=== PATIENT | male | born 1935 | race Caucasian/White ===

== ENCOUNTER 2018-02-14 08:55 | Outpatient (CLI) | payer OTHER | END 2018-02-14 09:03 | disposition home or self-care (01) | LOC: LAB 08:55 | DX: Z80.0 Family history of malignant neoplasm of digestive organs (principal); D51.8 Other vitamin B12 deficiency anemias; D51.3 Other dietary vitamin B12 deficiency anemia; D72.818 Other decreased white blood cell count; E55.9 Vitamin D deficiency, unspecified; J32.4 Chronic pansinusitis; I10 Essential (primary) hypertension; E03.8 Other specified hypothyroidism; D50.8 Other iron deficiency anemias; R97.0 Elevated carcinoembryonic antigen [CEA]; R97.8 Other abnormal tumor markers; N40.1 Benign prostatic hyperplasia with lower urinary tract symptoms; N39.0 Urinary tract infection, site not specified; D68.8 Other specified coagulation defects; N34.2 Other urethritis ==

== ENCOUNTER 2018-06-28 10:49 | Outpatient (CLI) | payer OTHER | END 2018-06-28 11:04 | disposition home or self-care (01) | LOC: RAD 10:49 | DX: E03.8 Other specified hypothyroidism (principal); J45.998 Other asthma; E07.89 Other specified disorders of thyroid ==

== ENCOUNTER 2018-12-21 10:19 | Outpatient (CLI) | payer OTHER | END 2018-12-21 10:28 | disposition home or self-care (01) | LOC: RAD 10:19 | DX: H25.011 Cortical age-related cataract, right eye (principal); Z98.41 Cataract extraction status, right eye ==

== ENCOUNTER 2019-08-12 10:59 | Outpatient (CLI) | payer OTHER | END 2019-08-12 12:39 | disposition home or self-care (01) | LOC: LAB 10:59 | DX: E11.69 Type 2 diabetes mellitus with other specified complication (principal); D64.89 Other specified anemias; E78.2 Mixed hyperlipidemia; E03.8 Other specified hypothyroidism; D50.8 Other iron deficiency anemias; I10 Essential (primary) hypertension; Z80.0 Family history of malignant neoplasm of digestive organs; D72.818 Other decreased white blood cell count; D51.8 Other vitamin B12 deficiency anemias; D51.3 Other dietary vitamin B12 deficiency anemia; E55.9 Vitamin D deficiency, unspecified; J32.4 Chronic pansinusitis; R97.0 Elevated carcinoembryonic antigen [CEA]; R97.20 Elevated prostate specific antigen [PSA]; R97.8 Other abnormal tumor markers ==

== ENCOUNTER 2020-02-20 07:11 | Outpatient (CLI) | payer OTHER | END 2020-02-20 07:23 | disposition home or self-care (01) | LOC: LAB 07:11 | PROVIDERS: ATTEND Internal Medicine Hematology & Oncology | DX: D50.8 Other iron deficiency anemias (principal); D51.8 Other vitamin B12 deficiency anemias; E55.9 Vitamin D deficiency, unspecified; I10 Essential (primary) hypertension; R97.0 Elevated carcinoembryonic antigen [CEA]; R97.8 Other abnormal tumor markers; R97.20 Elevated prostate specific antigen [PSA]; Z80.0 Family history of malignant neoplasm of digestive organs; D72.818 Other decreased white blood cell count; D51.3 Other dietary vitamin B12 deficiency anemia; J32.4 Chronic pansinusitis; E03.8 Other specified hypothyroidism ==

== ENCOUNTER → 2020-04-06 09:46 | Outpatient (CLI) | payer OTHER | END | disposition home or self-care (01) | LOC: LAB 09:46 | PROVIDERS: ATTEND Specialist | DX: D64.89 Other specified anemias (principal); N40.1 Benign prostatic hyperplasia with lower urinary tract symptoms; E11.65 Type 2 diabetes mellitus with hyperglycemia; D68.8 Other specified coagulation defects; E11.21 Type 2 diabetes mellitus with diabetic nephropathy ==

== ENCOUNTER 2020-07-21 09:24 | Outpatient (CLI) | payer OTHER | END 2020-07-21 09:30 | disposition home or self-care (01) | LOC: LAB 09:24 | PROVIDERS: ATTEND Specialist | DX: D50.8 Other iron deficiency anemias (principal); D51.8 Other vitamin B12 deficiency anemias; E55.9 Vitamin D deficiency, unspecified; R97.0 Elevated carcinoembryonic antigen [CEA]; R97.8 Other abnormal tumor markers; R97.20 Elevated prostate specific antigen [PSA]; I10 Essential (primary) hypertension; Z80.0 Family history of malignant neoplasm of digestive organs; D72.818 Other decreased white blood cell count; D51.3 Other dietary vitamin B12 deficiency anemia; J32.4 Chronic pansinusitis; E03.8 Other specified hypothyroidism ==

== ENCOUNTER 2020-07-22 11:09 | Outpatient (CLI) | payer OTHER | END 2020-07-22 11:16 | disposition home or self-care (01) | LOC: LAB 11:09 | PROVIDERS: ATTEND Specialist | DX: D68.8 Other specified coagulation defects (principal); K75.81 Nonalcoholic steatohepatitis (NASH); Z12.11 Encounter for screening for malignant neoplasm of colon; D51.0 Vitamin B12 deficiency anemia due to intrinsic factor deficiency; E78.2 Mixed hyperlipidemia; E03.8 Other specified hypothyroidism; E55.9 Vitamin D deficiency, unspecified; D64.89 Other specified anemias ==

== ENCOUNTER 2020-09-22 10:28 | Outpatient (CLI) | payer OTHER | END 2020-09-22 10:33 | disposition home or self-care (01) | LOC: RAD 10:28 | PROVIDERS: ATTEND Specialist | DX: J45.998 Other asthma (principal) ==

== ENCOUNTER 2020-10-21 08:40 | Outpatient (CLI) | payer OTHER | END 2020-10-21 15:01 | disposition home or self-care (01) | LOC: LAB 08:40 | PROVIDERS: ATTEND Specialist | DX: E78.2 Mixed hyperlipidemia (principal); E05.80 Other thyrotoxicosis without thyrotoxic crisis or storm ==

== ENCOUNTER 2021-01-19 09:40 | Outpatient (CLI) | payer OTHER | END 2021-01-19 09:45 | disposition home or self-care (01) | LOC: LAB 09:40 | PROVIDERS: ATTEND Specialist | DX: J32.4 Chronic pansinusitis (principal); D64.89 Other specified anemias; N39.0 Urinary tract infection, site not specified; E78.2 Mixed hyperlipidemia; D50.8 Other iron deficiency anemias; I10 Essential (primary) hypertension; R74.02 Elevation of levels of lactic acid dehydrogenase [LDH]; K76.89 Other specified diseases of liver; D51.8 Other vitamin B12 deficiency anemias; R97.0 Elevated carcinoembryonic antigen [CEA]; R97.8 Other abnormal tumor markers; R97.20 Elevated prostate specific antigen [PSA]; Z80.0 Family history of malignant neoplasm of digestive organs; D72.818 Other decreased white blood cell count; D51.3 Other dietary vitamin B12 deficiency anemia; E55.9 Vitamin D deficiency, unspecified ==

== ENCOUNTER 2021-04-26 10:04 | Outpatient (CLI) | payer OTHER | END 2021-04-26 10:05 | disposition home or self-care (01) | LOC: LAB 10:04 | PROVIDERS: ATTEND Specialist | DX: D64.89 Other specified anemias (principal); E03.8 Other specified hypothyroidism; E11.69 Type 2 diabetes mellitus with other specified complication ==

== ENCOUNTER 2021-07-02 10:42 | Outpatient (CLI) | payer OTHER | END 2021-07-02 10:44 | disposition home or self-care (01) | LOC: LAB 10:42 | PROVIDERS: ATTEND Specialist | DX: E03.8 Other specified hypothyroidism (principal); E11.21 Type 2 diabetes mellitus with diabetic nephropathy; N39.8 Other specified disorders of urinary system; D40.0 Neoplasm of uncertain behavior of prostate; E78.2 Mixed hyperlipidemia; E11.65 Type 2 diabetes mellitus with hyperglycemia; Z12.11 Encounter for screening for malignant neoplasm of colon; D64.89 Other specified anemias; D50.8 Other iron deficiency anemias; I10 Essential (primary) hypertension; R74.02 Elevation of levels of lactic acid dehydrogenase [LDH]; K76.89 Other specified diseases of liver; D51.8 Other vitamin B12 deficiency anemias; R97.0 Elevated carcinoembryonic antigen [CEA]; R97.8 Other abnormal tumor markers; R97.20 Elevated prostate specific antigen [PSA]; Z80.0 Family history of malignant neoplasm of digestive organs; D72.818 Other decreased white blood cell count; D51.3 Other dietary vitamin B12 deficiency anemia; E55.9 Vitamin D deficiency, unspecified; J32.4 Chronic pansinusitis; J45.998 Other asthma ==

== ENCOUNTER 2021-10-06 09:21 | Outpatient (CLI) | payer OTHER | END 2021-10-06 09:28 | disposition home or self-care (01) | LOC: LAB 09:21 | PROVIDERS: ATTEND Specialist | DX: E03.9 Hypothyroidism, unspecified (principal) ==

== ENCOUNTER 2022-01-27 09:02 | Outpatient (CLI) | payer OTHER | END 2022-01-27 09:08 | disposition home or self-care (01) | LOC: LAB 09:02 | PROVIDERS: ATTEND Specialist | DX: E03.9 Hypothyroidism, unspecified (principal); E78.2 Mixed hyperlipidemia; E11.65 Type 2 diabetes mellitus with hyperglycemia; D72.818 Other decreased white blood cell count; D51.8 Other vitamin B12 deficiency anemias; D51.3 Other dietary vitamin B12 deficiency anemia; E55.9 Vitamin D deficiency, unspecified; J32.4 Chronic pansinusitis; I10 Essential (primary) hypertension ==

== ENCOUNTER 2022-05-10 09:09 | Outpatient (CLI) | payer OTHER | END 2022-05-10 09:10 | disposition home or self-care (01) | LOC: LAB 09:09 | PROVIDERS: ATTEND Specialist | DX: E11.69 Type 2 diabetes mellitus with other specified complication (principal); E03.8 Other specified hypothyroidism; E11.21 Type 2 diabetes mellitus with diabetic nephropathy; D64.89 Other specified anemias; Z13.220 Encounter for screening for lipoid disorders; N39.9 Disorder of urinary system, unspecified ==

== ENCOUNTER 2022-09-27 08:50 | Outpatient (CLI) | payer OTHER | END 2022-09-27 08:52 | disposition home or self-care (01) | LOC: LAB 08:50 | PROVIDERS: ATTEND Specialist | DX: E03.8 Other specified hypothyroidism (principal); Z12.5 Encounter for screening for malignant neoplasm of prostate; N39.9 Disorder of urinary system, unspecified; D46.A Refractory cytopenia with multilineage dysplasia; Z13.220 Encounter for screening for lipoid disorders; M00.88 Arthritis due to other bacteria, vertebrae; E11.69 Type 2 diabetes mellitus with other specified complication; E11.21 Type 2 diabetes mellitus with diabetic nephropathy; D50.8 Other iron deficiency anemias; I10 Essential (primary) hypertension; R74.02 Elevation of levels of lactic acid dehydrogenase [LDH]; K76.89 Other specified diseases of liver; D51.8 Other vitamin B12 deficiency anemias; R97.0 Elevated carcinoembryonic antigen [CEA]; R97.8 Other abnormal tumor markers; R97.20 Elevated prostate specific antigen [PSA]; Z80.0 Family history of malignant neoplasm of digestive organs; D72.818 Other decreased white blood cell count; D51.3 Other dietary vitamin B12 deficiency anemia; E55.9 Vitamin D deficiency, unspecified; J32.9 Chronic sinusitis, unspecified; J45.991 Cough variant asthma ==

== ENCOUNTER 2022-10-24 08:26 | Outpatient (CLI) | payer OTHER | END 2022-10-24 08:32 | disposition home or self-care (01) | LOC: SONOGRAMA 08:26 | PROVIDERS: ATTEND Specialist | DX: N20.0 Calculus of kidney (principal); K80.80 Other cholelithiasis without obstruction ==

== ENCOUNTER 2022-12-29 09:21 | Outpatient (CLI) | payer OTHER | END 2022-12-29 09:23 | disposition home or self-care (01) | LOC: LAB 09:21 | PROVIDERS: ATTEND Specialist | DX: D64.89 Other specified anemias (principal); E03.8 Other specified hypothyroidism; E11.69 Type 2 diabetes mellitus with other specified complication; M00.80 Arthritis due to other bacteria, unspecified joint; N39.9 Disorder of urinary system, unspecified; Z13.220 Encounter for screening for lipoid disorders; D50.8 Other iron deficiency anemias; I10 Essential (primary) hypertension; R74.02 Elevation of levels of lactic acid dehydrogenase [LDH]; K76.89 Other specified diseases of liver; Z80.0 Family history of malignant neoplasm of digestive organs; D72.818 Other decreased white blood cell count; D51.3 Other dietary vitamin B12 deficiency anemia; E55.9 Vitamin D deficiency, unspecified; J32.4 Chronic pansinusitis; K82.9 Disease of gallbladder, unspecified ==

== ENCOUNTER 2023-01-26 07:02 | Outpatient (CLI) | payer OTHER | END 2023-01-26 07:08 | disposition home or self-care (01) | LOC: TOM 07:02 | PROVIDERS: ATTEND Specialist | DX: K57.90 Diverticulosis of intestine, part unspecified, without perforation or abscess without bleeding (principal); K57.51 Diverticulosis of both small and large intestine without perforation or abscess with bleeding ==

== ENCOUNTER 2023-04-01 10:15 | Outpatient (CLI) | payer OTHER ==
[~2023-04-01 10:15] MED LIST: LEVOTHYROXINE100 MC1 PO; LEVOTHYROXINE88 MC1 PO; VASOFLEX TABLE1 EACH PO
[2023-04-01 12:15] LABS: CALCIUM 8.4 mg/dL (8.5-10.1); CREATININE SERUM 0.84 mg/dL (0.70-1.30); GFR 86.84; POTASSIUM 4.41 mEq/L (3.5-5.1)
== END 2023-04-01 10:18 | disposition home or self-care (01) ==
LOC: LAB 10:15
PROVIDERS: ATTEND Specialist
DX: D49.4 Neoplasm of unspecified behavior of bladder (principal)

== ENCOUNTER 2023-05-20 09:03 | Outpatient (CLI) | payer OTHER ==
[2023-05-20 10:31] LABS: ALBUMIN 1.6 gm/dL (3.4-5.0); BILIRUBIN TOTAL 0.56 mg/dL (0.3-1.2); CALCIUM 8.1 mg/dL (8.5-10.1); CREATININE SERUM 0.71 mg/dL (0.70-1.30); GFR 105.44; GLOBULINA 3.8 G/DL (2.4-3.5); TOTAL PROTEIN 5.4 gm/dL (6.4-8.2)
[2023-05-20 11:15] LABS: HEMATOCRIT 27.5 % (39.0-48.0); MEAN CORPUSCULAR HGB CONC 31.8 g/dl (32.0-36.0); PLATELET COUNT 493 K/uL (150-450); RED BLOOD COUNT 3.09 M/uL (4.00-6.00)
[2023-05-20 11:30] LABS: HEMOGLOBIN 8.8 g/dL (13-16.00); MEAN CORPUSCULAR HEMOGLOBIN 28.4 pg (27.00-32.0)
[2023-05-20 11:31] LABS: RED CELL DISTRIBUTION WIDTH 19.7 % (11.5-14.5)
== END 2023-05-20 09:08 | disposition home or self-care (01) ==
LOC: LAB 09:03
PROVIDERS: ATTEND Internal Medicine Hematology & Oncology
DX: D50.8 Other iron deficiency anemias (principal); I10 Essential (primary) hypertension; R74.02 Elevation of levels of lactic acid dehydrogenase [LDH]; K76.89 Other specified diseases of liver; Z80.0 Family history of malignant neoplasm of digestive organs; C48.0 Malignant neoplasm of retroperitoneum; C49.4 Malignant neoplasm of connective and soft tissue of abdomen; D72.818 Other decreased white blood cell count; D51.3 Other dietary vitamin B12 deficiency anemia; E55.9 Vitamin D deficiency, unspecified; J32.4 Chronic pansinusitis; E03.8 Other specified hypothyroidism; K82.9 Disease of gallbladder, unspecified

== ENCOUNTER 2023-05-22 11:15 | Inpatient (IN) | payer OTHER ==
[~2023-05-22] VITALS: Ht 160 cm; Wt 64.0 kg
[2023-05-22] MEDS ORDERED: LEVOTHYROXINE88 MCG PO (11:52)
[2023-05-22] MEDS ORDERED: TRAMADOL HCL E100 M1 PO (11:54)
[2023-05-22 13:09] LABS: PH,URINE 5.5 (5.0-8.0); URINE APPEARANCE Cloudy; URINE BILIRRUBIN Small (NEGATIVE); URINE BLOOD Negative; URINE COLOR Dark Yellow; URINE GLUCOSE Negative (NEGATIVE); URINE LEUKOCYTE Trace; URINE NITRATE Negative; URINE PROTEIN Trace (NEGATIVE)
[2023-05-22 13:14] LABS: URINE BACTERIA 269.6 uL (0.0-1933); URINE RBC 18.8 uL (0.0-20.8); URINE WBC 11.7 uL (0.0-23.2)
[2023-05-22 13:20] LABS: HEMATOCRIT 25.9 % (39.0-48.0); MEAN CELL VOLUME 88.6 fL (80.0-100.00); MEAN CORPUSCULAR HGB CONC 32.3 g/dl (32.0-36.0); PLATELET COUNT 413 K/uL (150-450); RED BLOOD COUNT 2.92 M/uL (4.00-6.00)
[2023-05-22 13:21] LABS: MEAN CORPUSCULAR HEMOGLOBIN 28.7 pg (27.00-32.0)
[2023-05-22 13:22] LABS: HEMOGLOBIN 8.4 g/dL (13-16.00)
[2023-05-22 13:24] LABS: RED CELL DISTRIBUTION WIDTH 19.8 % (11.5-14.5)
[2023-05-22 13:45] LABS: ALBUMIN 1.6 gm/dL (3.4-5.0); BILIRUBIN TOTAL 0.35 mg/dL (0.3-1.2); CALCIUM 8.1 mg/dL (8.5-10.1); CREATININE SERUM 0.69 mg/dL (0.70-1.30); GFR 108.97; GLOBULINA 4.3 G/DL (2.4-3.5); POTASSIUM 3.66 mEq/L (3.5-5.1); TOTAL PROTEIN 5.9 gm/dL (6.4-8.2)
[2023-05-22 13:47] LABS: INR 1.24; PROTHROMBIN TIME 12.8 SECONDS (9.0-11.5)
[2023-05-22 13:48] LABS: PARTIAL THROMBOPLASTIN TIME 41.1 SECONDS (22.0-34.0)
[2023-05-22 13:53] LABS: URINE CRYSTALS MODERATE /HPF; URINE MUCUS HEAVY
[2023-05-23 16:23] LABS: MEAN CELL VOLUME 88.6 fL (80.0-100.00); MEAN CORPUSCULAR HGB CONC 32.1 g/dl (32.0-36.0); PLATELET COUNT 352 K/uL (150-450); RED BLOOD COUNT 2.68 M/uL (4.00-6.00); RED CELL DISTRIBUTION WIDTH 18.9 % (11.5-14.5)
[2023-05-23 16:24] LABS: MEAN CORPUSCULAR HEMOGLOBIN 28.3 pg (27.00-32.0)
[2023-05-23 16:26] LABS: HEMATOCRIT 23.7 % (39.0-48.0); HEMOGLOBIN 7.6 g/dL (13-16.00)
[2023-05-23 16:44] LABS: INR 1.28; PROTHROMBIN TIME 13.2 SECONDS (9.0-11.5)
[2023-05-23 16:46] LABS: PARTIAL THROMBOPLASTIN TIME 44.4 SECONDS (22.0-34.0)
[2023-05-23 17:06] LABS: ALBUMIN 1.4 gm/dL (3.4-5.0); BILIRUBIN TOTAL 0.69 mg/dL (0.3-1.2); BILIRUBIN,CONJUGATED 0.26 mg/dL (0.0-0.2); BILIRUBIN,UNCONJUGATED 0.43 mg/dL (0.0-0.6); CREATININE SERUM 0.69 mg/dL (0.70-1.30); GFR 108.97; GLOBULINA 3.8 G/DL (2.4-3.5); MAGNESIUM 1.9 mg/dL (1.8-2.4); POTASSIUM 3.8 mEq/L (3.5-5.1); TOTAL PROTEIN 5.2 gm/dL (6.4-8.2)
[2023-05-23 17:19] LABS: C-REACTIVE PROTEIN 9.11 MG/DL (0.00-0.29); TSH 8.43 uIU/mL (0.358-3.74)
[2023-05-24 20:59] LABS: HEMATOCRIT 28.9 % (39.0-48.0); MEAN CELL VOLUME 87.9 fL (80.0-100.00); MEAN CORPUSCULAR HGB CONC 32.5 g/dl (32.0-36.0); PLATELET COUNT 344 K/uL (150-450); RED BLOOD COUNT 3.29 M/uL (4.00-6.00); RED CELL DISTRIBUTION WIDTH 18.8 % (11.5-14.5)
[2023-05-24 21:00] LABS: HEMOGLOBIN 9.4 g/dL (13-16.00); MEAN CORPUSCULAR HEMOGLOBIN 28.5 pg (27.00-32.0)
[2023-05-25 23:52] LABS: FREE TRIODOTIRONINE 0.53 pg/ml (2.18-3.98); T4 FREE 1.22 NG/ML (0.76-1.46)
== END 2023-05-27 08:29 | disposition home or self-care (01) | DRG 581 ==
LOC: ER 11:15 → SURH 20:14 → SEC-K 20:14 → SURH 05-23 14:52
PROVIDERS: Emergency Medicine; Radiology Vascular & Interventional Radiology; ADMIT Specialist; ATTEND Specialist
PROC: 30233N1 Transfusion of Nonautologous Red Blood Cells into Peripheral Vein, Percutaneous Approach (ICD-10-PCS; 2023-05-23)
PROC: 0JHD3WZ Insertion of Totally Implantable Vascular Access Device into Right Upper Arm Subcutaneous Tissue and Fascia, Percutaneous Approach (ICD-10-PCS; principal; 2023-05-25 19:45)
DX: C44.99 Other specified malignant neoplasm of skin, unspecified (principal); D63.0 Anemia in neoplastic disease; E03.8 Other specified hypothyroidism

== ENCOUNTER → 2023-06-15 09:34 | Outpatient (CLI) | payer OTHER ==
[~2023-06-15 09:34] MED LIST changes: +LEVOTHYROXINE88 MCG PO; +TRAMADOL HCL E100 M1 PO
[2023-06-15 10:48] LABS: HEMATOCRIT 30.4 % (39.0-48.0); HEMOGLOBIN 9.9 g/dL (13-16.00); MEAN CELL VOLUME 91.7 fL (80.0-100.00); MEAN CORPUSCULAR HEMOGLOBIN 29.8 pg (27.00-32.0); MEAN CORPUSCULAR HGB CONC 32.5 g/dl (32.0-36.0); PLATELET COUNT 490 K/uL (150-450); RED BLOOD COUNT 3.32 M/uL (4.00-6.00); RED CELL DISTRIBUTION WIDTH 18.4 % (11.5-14.5)
[2023-06-15 11:13] LABS: ALBUMIN 1.5 gm/dL (3.4-5.0); BILIRUBIN TOTAL 0.57 mg/dL (0.3-1.2); CALCIUM 7.9 mg/dL (8.5-10.1); CREATININE SERUM 0.6 mg/dL (0.70-1.30); GFR 128.05; GLOBULINA 3.5 G/DL (2.4-3.5); POTASSIUM 3.95 mEq/L (3.5-5.1)
== END | disposition home or self-care (01) ==
LOC: LAB 09:34
PROVIDERS: ATTEND Internal Medicine Hematology & Oncology
DX: D50.8 Other iron deficiency anemias (principal); I10 Essential (primary) hypertension; R74.02 Elevation of levels of lactic acid dehydrogenase [LDH]; K76.89 Other specified diseases of liver; C48.0 Malignant neoplasm of retroperitoneum; C49.4 Malignant neoplasm of connective and soft tissue of abdomen; D72.818 Other decreased white blood cell count; D51.3 Other dietary vitamin B12 deficiency anemia; E55.9 Vitamin D deficiency, unspecified; J32.9 Chronic sinusitis, unspecified; E03.8 Other specified hypothyroidism; K82.9 Disease of gallbladder, unspecified

== ENCOUNTER 2023-06-15 10:19 | Outpatient (CLI) | payer OTHER | END 2023-06-15 10:31 | disposition home or self-care (01) | LOC: TOM 10:19 | PROVIDERS: ATTEND Internal Medicine | DX: R19.01 Right upper quadrant abdominal swelling, mass and lump (principal) ==

== ENCOUNTER 2023-06-21 10:14 | Inpatient (IN) | payer OTHER ==
[~2023-06-21] VITALS: Ht 167.6 cm; Wt 63.0 kg
[2023-06-21 12:34] LABS: URINE APPEARANCE Clear; URINE BILIRRUBIN Negative (NEGATIVE); URINE BLOOD Negative; URINE COLOR Yellow; URINE GLUCOSE Negative (NEGATIVE); URINE LEUKOCYTE Negative; URINE NITRATE Negative; URINE PROTEIN Negative (NEGATIVE)
[2023-06-21 12:43] LABS: URINE BACTERIA 15.1 uL (0.0-1933); URINE EPITHELIAL CELLS 4.6 uL (0.0-38.8); URINE RBC 3.7 uL (0.0-20.8)
[2023-06-21 12:45] LABS: HEMATOCRIT 32.6 % (39.0-48.0); HEMOGLOBIN 10.6 g/dL (13-16.00); MEAN CELL VOLUME 92.8 fL (80.0-100.00); MEAN CORPUSCULAR HEMOGLOBIN 30.1 pg (27.00-32.0); MEAN CORPUSCULAR HGB CONC 32.4 g/dl (32.0-36.0); PLATELET COUNT 368 K/uL (150-450); RED BLOOD COUNT 3.51 M/uL (4.00-6.00); RED CELL DISTRIBUTION WIDTH 18.9 % (11.5-14.5)
[2023-06-21 13:19] LABS: ALBUMIN 1.5 gm/dL (3.4-5.0); BILIRUBIN TOTAL 0.37 mg/dL (0.3-1.2); BILIRUBIN,CONJUGATED 0.12 mg/dL (0.0-0.2); BILIRUBIN,UNCONJUGATED 0.25 mg/dL (0.0-0.6); CALCIUM 8.4 mg/dL (8.5-10.1); CREATININE SERUM 0.59 mg/dL (0.70-1.30); GFR 130.56; POTASSIUM 3.92 mEq/L (3.5-5.1); TOTAL PROTEIN 5.8 gm/dL (6.4-8.2)
[2023-06-21 22:23] LABS: D DIMER 1.75 MG/L
[2023-06-21 22:24] LABS: INR 1.17; PROTHROMBIN TIME 12.1 SECONDS (9.0-11.5)
[2023-06-21 22:41] LABS: ABG PH 7.459 (7.35-7.45); ABG PO2 119.1 mmHg (80-100); BICARBONATE 25.7 mmol/l (23-25); SaO2 98.9 %; Tco2 26.8 mmol/l; allen test NO SATISFACTORY; o2 32 %; puncture site RADIAL LEFT
[2023-06-22 08:08] LABS: URINE APPEARANCE Clear; URINE BILIRRUBIN Negative (NEGATIVE); URINE BLOOD Negative; URINE COLOR Yellow; URINE GLUCOSE Negative (NEGATIVE); URINE LEUKOCYTE Negative; URINE NITRATE Negative; URINE PROTEIN Trace (NEGATIVE)
[2023-06-22 08:12] LABS: URINE BACTERIA 17.6 uL (0.0-1933); URINE EPITHELIAL CELLS 10.8 uL (0.0-38.8); URINE RBC 5.8 uL (0.0-20.8); URINE WBC 9.5 uL (0.0-23.2)
== END 2023-06-23 16:04 | disposition home or self-care (01) | DRG 544 ==
LOC: ER 10:14 → MEDJ 21:03
PROVIDERS: General Practice; ADMIT Specialist; ATTEND Specialist
PROC: BW21ZZZ Computerized Tomography (CT Scan) of Abdomen and Pelvis (ICD-10-PCS; principal; 2023-06-21)
DX: C49.9 Malignant neoplasm of connective and soft tissue, unspecified (principal); C44.99 Other specified malignant neoplasm of skin, unspecified; E86.0 Dehydration; R19.09 Other intra-abdominal and pelvic swelling, mass and lump; E03.9 Hypothyroidism, unspecified

== ENCOUNTER 2023-06-28 16:20 | Inpatient (IN) | payer OTHER ==
[~2023-06-28] VITALS: Ht 152.4 cm; Wt 63.5 kg
[2023-06-28] MEDS ORDERED: SYNTHROID100 MCG (16:56)
[2023-06-28] MEDS ORDERED: SYNTHROID88 MCG (16:57)
[2023-06-28 19:06] LABS: HEMATOCRIT 26.8 % (39.0-48.0); MEAN CELL VOLUME 91.4 fL (80.0-100.00); PLATELET COUNT 152 K/uL (150-450); RED BLOOD COUNT 2.94 M/uL (4.00-6.00)
[2023-06-28 19:17] LABS: HEMOGLOBIN 8.8 g/dL (13-16.00); MEAN CORPUSCULAR HEMOGLOBIN 29.9 pg (27.00-32.0)
[2023-06-28 19:25] LABS: PH,URINE 5.5 (5.0-8.0); URINE APPEARANCE Clear; URINE BILIRRUBIN Negative (NEGATIVE); URINE COLOR Dark Yellow; URINE GLUCOSE Negative (NEGATIVE); URINE LEUKOCYTE Trace; URINE NITRATE Negative; URINE PROTEIN Negative (NEGATIVE)
[2023-06-28 19:26] LABS: URINE BACTERIA 71.8 uL (0.0-1933); URINE WBC 19.7 uL (0.0-23.2)
[2023-06-28 19:27] LABS: ALBUMIN 1.5 gm/dL (3.4-5.0); BILIRUBIN TOTAL 0.54 mg/dL (0.3-1.2); CALCIUM 7.7 mg/dL (8.5-10.1); CREATININE SERUM 0.42 mg/dL (0.70-1.30); GFR 193.25; GLOBULINA 3.2 G/DL (2.4-3.5); POTASSIUM 4.56 mEq/L (3.5-5.1); TOTAL PROTEIN 4.7 gm/dL (6.4-8.2)
[2023-06-28 19:29] LABS: INR 1.24; PROTHROMBIN TIME 12.8 SECONDS (9.0-11.5)
[2023-06-28 19:43] LABS: PARTIAL THROMBOPLASTIN TIME 42.1 SECONDS (22.0-34.0)
[2023-06-28 20:15] LABS: URINE CRYSTALS MODERATE /HPF
[2023-06-28 22:13] LABS: ABG PH 7.475 (7.35-7.45); ABG PO2 71.2 mmHg (80-100); ABG pCO2 36.1 mmHg (35-45); BASE EXCESS 2.7 mmol/l; SaO2 95.4 %; Tco2 27.1 mmol/l
[2023-06-28 22:14] LABS: allen test SATISFACTORY; o2 21 %; puncture site RADIAL RIGHT
[2023-06-29 07:17] LABS: URINE BLOOD Trace
[2023-06-29 13:31] LABS: CALCIUM 7.9 mg/dL (8.5-10.1); CHOL HDL RATIO 5.6 (0-5.0); CREATININE SERUM 0.56 mg/dL (0.70-1.30); GFR 138.66; POTASSIUM 3.66 mEq/L (3.5-5.1)
[2023-07-01 07:23] LABS: HEMATOCRIT 27.3 % (39.0-48.0); MEAN CORPUSCULAR HGB CONC 34.2 g/dl (32.0-36.0); RED BLOOD COUNT 3.03 M/uL (4.00-6.00); RED CELL DISTRIBUTION WIDTH 16.8 % (11.5-14.5)
[2023-07-01 07:44] LABS: ALBUMIN 1.3 gm/dL (3.4-5.0); BILIRUBIN TOTAL 0.45 mg/dL (0.3-1.2); CALCIUM 7.6 mg/dL (8.5-10.1); CREATININE SERUM 0.5 mg/dL (0.70-1.30); GFR 158.03; GLOBULINA 2.7 G/DL (2.4-3.5); POTASSIUM 3.28 mEq/L (3.5-5.1)
[2023-07-01 08:00] LABS: HEMOGLOBIN 9.3 g/dL (13-16.00); MEAN CORPUSCULAR HEMOGLOBIN 30.6 pg (27.00-32.0)
[2023-07-01 08:01] LABS: PLATELET COUNT 89 K/uL (150-450)
[2023-07-03 08:25] LABS: HEMATOCRIT 30.3 % (39.0-48.0); MEAN CELL VOLUME 93.9 fL (80.0-100.00); MEAN CORPUSCULAR HEMOGLOBIN 31.1 pg (27.00-32.0); MEAN CORPUSCULAR HGB CONC 33.1 g/dl (32.0-36.0); RED BLOOD COUNT 3.22 M/uL (4.00-6.00); RED CELL DISTRIBUTION WIDTH 16.9 % (11.5-14.5)
[2023-07-03 08:48] LABS: ALBUMIN 1.4 gm/dL (3.4-5.0); BILIRUBIN TOTAL 0.31 mg/dL (0.3-1.2); BILIRUBIN,CONJUGATED 0.14 mg/dL (0.0-0.2); BILIRUBIN,UNCONJUGATED 0.17 mg/dL (0.0-0.6); CHOL HDL RATIO 5.9 (0-5.0); INR 1.21; PROTHROMBIN TIME 12.5 SECONDS (9.0-11.5); TOTAL PROTEIN 4.3 gm/dL (6.4-8.2)
[2023-07-03 08:50] LABS: PARTIAL THROMBOPLASTIN TIME 43.9 SECONDS (22.0-34.0)
[2023-07-03 08:54] LABS: ALBUMIN 1.4 gm/dL (3.4-5.0); BILIRUBIN TOTAL 0.29 mg/dL (0.3-1.2); CALCIUM 7.6 mg/dL (8.5-10.1); CREATININE SERUM 0.44 mg/dL (0.70-1.30); GFR 183.16; GLOBULINA 2.9 G/DL (2.4-3.5); POTASSIUM 4.4 mEq/L (3.5-5.1); TOTAL PROTEIN 4.3 gm/dL (6.4-8.2)
[2023-07-03 09:23] LABS: PLATELET COUNT 130 K/uL (150-450)
[2023-07-03 09:33] LABS: UREA CLEARANCE 19.1 ML/MIN
== END 2023-07-03 20:04 | disposition home or self-care (01) | DRG 392 ==
LOC: ER 16:20 → SEC-K 23:00 → MEDJ 06-29 16:44
PROVIDERS: General Practice; Internal Medicine Hematology & Oncology; ADMIT Specialist; ATTEND Specialist
PROC: BW21ZZZ Computerized Tomography (CT Scan) of Abdomen and Pelvis (ICD-10-PCS; principal; 2023-06-28)
PROC: BW21YZZ Computerized Tomography (CT Scan) of Abdomen and Pelvis using Other Contrast (ICD-10-PCS; 2023-06-29)
PROC: 02HV33Z Insertion of Infusion Device into Superior Vena Cava, Percutaneous Approach (ICD-10-PCS; 2023-06-29)
PROC: 30233N1 Transfusion of Nonautologous Red Blood Cells into Peripheral Vein, Percutaneous Approach (ICD-10-PCS; 2023-06-29)
PROC: 0JB73ZZ Excision of Back Subcutaneous Tissue and Fascia, Percutaneous Approach (ICD-10-PCS; 2023-06-30)
DX: K59.09 Other constipation (principal); C49.9 Malignant neoplasm of connective and soft tissue, unspecified; J90 Pleural effusion, not elsewhere classified; D64.81 Anemia due to antineoplastic chemotherapy; D63.0 Anemia in neoplastic disease; C44.99 Other specified malignant neoplasm of skin, unspecified; E03.9 Hypothyroidism, unspecified; L89.159 Pressure ulcer of sacral region, unspecified stage

== ENCOUNTER 2023-07-17 16:27 | Inpatient (IN) | payer OTHER ==
[~2023-07-17] VITALS: Ht 165.1 cm; Wt 68.0 kg
[~2023-07-17 16:27] MED LIST changes: +SYNTHROID100 MCG; +SYNTHROID88 MCG
[2023-07-17 17:22] LABS: HEMATOCRIT 35.6 % (39.0-48.0); HEMOGLOBIN 11.9 g/dL (13-16.00); MEAN CORPUSCULAR HGB CONC 33.3 g/dl (32.0-36.0); PLATELET COUNT 376 K/uL (150-450); RED BLOOD COUNT 3.71 M/uL (4.00-6.00); RED CELL DISTRIBUTION WIDTH 18.1 % (11.5-14.5)
[2023-07-17 17:51] LABS: PH,URINE 5.5 (5.0-8.0); URINE APPEARANCE Cloudy; URINE BILIRRUBIN Small (NEGATIVE); URINE BLOOD Moderate; URINE COLOR Dark Yellow; URINE GLUCOSE Negative (NEGATIVE); URINE LEUKOCYTE Moderate; URINE NITRATE Negative; URINE PROTEIN 30 (NEGATIVE)
[2023-07-17 17:54] LABS: URINE BACTERIA 497.6 uL (0.0-1933); URINE EPITHELIAL CELLS 6.6 uL (0.0-38.8); URINE RBC 201.3 uL (0.0-20.8); URINE WBC 1150.7 uL (0.0-23.2)
[2023-07-17 17:58] LABS: INR 1.21; PARTIAL THROMBOPLASTIN TIME 37.8 SECONDS (22.0-34.0); PROTHROMBIN TIME 12.5 SECONDS (9.0-11.5)
[2023-07-17 17:59] LABS: ALBUMIN 1.4 gm/dL (3.4-5.0); BILIRUBIN TOTAL 0.55 mg/dL (0.3-1.2); CALCIUM 8.3 mg/dL (8.5-10.1); CREATININE SERUM 0.58 mg/dL (0.70-1.30); GFR 133.16; GLOBULINA 4.3 G/DL (2.4-3.5); POTASSIUM 4.23 mEq/L (3.5-5.1); TOTAL PROTEIN 5.7 gm/dL (6.4-8.2)
[2023-07-17 18:26] LABS: URINE CRYSTALS FEW /HPF
[2023-07-17 18:56] LABS: ABG PH 7.496 (7.35-7.45); ABG pCO2 32.9 mmHg (35-45); SaO2 92.7 %
[2023-07-17 18:57] LABS: BASE EXCESS 2.3 mmol/l; BICARBONATE 24.9 mmol/l (23-25); Tco2 25.9 mmol/l; allen test SATISFACTORY; o2 21 %; puncture site RADIAL LEFT
[2023-07-17] MEDS ORDERED: IPRATROPIUM BROMIDE 0.5 MG/2.5 ML AMPUL.NEB IH SCH (22:14)
[2023-07-17] MEDS ORDERED: CEFTRIAXONE SODIUM 2,000 MG in 0.9 % SODIUM CHLORIDE 100 ML IV SCH (22:17)
[2023-07-17] MEDS ORDERED: ACETAMINOPHEN 500 MG GEL..CAP PO PRN (22:30)
[2023-07-17] MEDS ORDERED: OxyCODONE HCL/APAP UD (PERCOCET) PO PRN (22:30)
[2023-07-17] MEDS ORDERED: ONDANSETRON HCL 4 MG in 0.9 % SODIUM CHLORIDE 50 ML IV PRN (22:30)
[2023-07-18] MEDS ORDERED: LEVOTHYROXINE SODIUM 100 MCG TABLET PO SCH (06:00)
[2023-07-18] MEDS ORDERED: FUROsemide 20 MG/2 ML VIAL IV SCH (09:00)
[2023-07-18] MEDS ORDERED: AMINO ACIDS/PROTEIN HYDROLYS 30 ML BLIST.PACK PO SCH (09:00)
[2023-07-18] MEDS ORDERED: FAMOTIDINE/PF 20 MG in 0.9 % SODIUM CHLORIDE 8 ML IV PUSH SCH (09:00)
[2023-07-18] MEDS ORDERED: ENOXAPARIN SODIUM 30 MG/0.3 ML SYRINGE SUBCUTANEO SCH (09:00)
== END 2023-07-18 19:59 | disposition other institution (70) | DRG 543 ==
LOC: ER 16:27 → MEDJ 22:19
PROVIDERS: Emergency Medicine; General Practice; ADMIT Specialist; ATTEND Specialist
PROC: 3E0F7GC Introduction of Other Therapeutic Substance into Respiratory Tract, Via Natural or Artificial Opening (ICD-10-PCS; principal; 2023-07-17)
PROC: BW25ZZZ Computerized Tomography (CT Scan) of Chest, Abdomen and Pelvis (ICD-10-PCS; 2023-07-17)
PROC: 4A033R1 Measurement of Arterial Saturation, Peripheral, Percutaneous Approach (ICD-10-PCS; 2023-07-17)
DX: C49.9 Malignant neoplasm of connective and soft tissue, unspecified (principal); C80.0 Disseminated malignant neoplasm, unspecified; R64 Cachexia; R18.0 Malignant ascites; J91.0 Malignant pleural effusion; R09.02 Hypoxemia; D64.81 Anemia due to antineoplastic chemotherapy; T45.1X5A Adverse effect of antineoplastic and immunosuppressive drugs, initial encounter; D63.0 Anemia in neoplastic disease; C44.99 Other specified malignant neoplasm of skin, unspecified; E03.9 Hypothyroidism, unspecified